=== PATIENT | female | born 1990 | race Caucasian/White ===

== ENCOUNTER 2018-10-03 10:39 | Inpatient (IN) | payer OTHER ==
[~2018-10-03] VITALS: Ht 154.9 cm; Wt 68.5 kg
[2018-10-03 10:46] VITALS: BP 118/69
--- NOTE | 2018-10-03 10:55 | NUR ---
PT W/C TO BED 11. SISTER AT BEDSIDE.
--- NOTE | 2018-10-03 11:09 | NUR ---
BIB SISTER C/O LEFT ARM,GRIS LOWER BACK& GRIS LEGS PAIN X TODAY.DENIES TRAUMA. MED HX: ANXIETY, DEPRESSION. PATIENT STATES PAIN OF 05/21 AT THIS TIME; PATIENT POSITIONED FOR COMFORT; HOB ELEVATED; BEDRAILS UP X1; BED DOWN. ER MD MADE AWARE OF PT STATUS.
[2018-10-03] MEDS ORDERED: NACL 0.9% 2,000 ML IV SCH (11:30)
[2018-10-03] MEDS ORDERED: KETOROLAC 30 MG/ML VIAL IVP ONE (11:30)
[2018-10-03] MEDS ORDERED: CLINDAMYCIN 900 MG in DEXTROSE 5% 100 ML IV ONE (11:30)
[2018-10-03] MEDS ORDERED: DEXAMETHASONE 10 MG/ML VIAL IVP ONE (11:30)
[2018-10-03] MEDS ORDERED: LEVOFLOXACIN 500 MG TAB PO ONE (11:30)
[2018-10-03] MEDS ORDERED: FAMOTIDINE 20 MG/2 ML VIAL IVP ONE (11:30)
[2018-10-03 11:38] LABS: BARBITURATE, URINE NEG. ng/ml (NEG <=200); BENZODIAZEPINE, URINE NEG. ng/mL (NEG <=200); CANNABINOID, URINE NEG. ng/mL (NEG <=50); COCAINE, URINE NEG. ng/mL (NEG <=300); OPIATE, URINE POS. ng/mL (NEG <=2000); PHENCYCLIDINE SCREEN,URINE NEG. ng/mL (NEG <=25)
--- NOTE | 2018-10-03 12:00 | NUR ---
PT WAS GIVEN TORADOL IVP, PT REPORTS IMMEDIATE ITCHINESS. NO RESP DISTRESS, HIVES, 98% ON RA. CELIO PASCUAL MADE AWARE. LOGGED IN PATIENT RECORD NEW ALLERGY TO TORADOL. DR. PERSON WILL SEE PATIENT. Addendum: 10/03/18 at 1234 by MEDDCV PT WAS GIVEN TORADOL IVP, PT REPORTS IMMEDIATE ITCHINESS. NO RESP DISTRESS OR HIVES, 98% ON RA. CELIO PASCUAL MADE AWARE. LOGGED IN PATIENT RECORD NEW ALLERGY TO TORADOL. DR. PERSON WILL SEE PATIENT.
[2018-10-03] MEDS ORDERED: CLINDAMYCIN 900 MG/6 ML VIAL IV ONE (12:02)
--- NOTE | 2018-10-03 12:15 | NUR ---
XRAY AT BEDSIDE.
--- NOTE | 2018-10-03 12:20 | NUR ---
FLU SWAB COLLECTED AND SENT TO LAB.
[2018-10-03 12:23] LABS: BASOPHILS % (AUTO) 0.2 % (0.0-2.0); EOSINOPHILS % (AUTO) 0.1 % (0.0-4.0); HEMATOCRIT 34.5 % (36-48); HEMOGLOBIN 11.4 g/dL (12.0-16.0); LYMPHOCYTES # (AUTO) 1.2 K/uL (2.5-16.5); LYMPHOCYTES % (AUTO) 11.9 % (20.5-51.1); MEAN CORPUSCULAR HEMOGLOBIN 26 pg (27-31); MEAN CORPUSCULAR HGB CONC 33 g/dL (33-37); MEAN CORPUSCULAR VOLUME 78.8 fL (80-94); MONOCYTES # (AUTO) 0.8 K/uL (0.8-1.0); MONOCYTES % (AUTO) 7.7 % (1.7-9.3); NEUTROPHILS # (AUTO) 8.2 K/uL (1.8-7.7); NEUTROPHILS % (AUTO) 80.1 % (42.2-75.2); PLATELET COUNT (AUTO) 202 K/uL (140-450); RED BLOOD CELL COUNT(AUTO) 4.38 MIL/uL (4.20-5.40); RED CELL DISTRIBUTION WIDTH 16.3 % (11.6-13.7); WHITE BLOOD COUNT (AUTO) 10.3 K/uL (4.8-10.8)
--- NOTE | 2018-10-03 12:25 | NUR ---
PATIENT TAKEN TO CT.
[2018-10-03] MEDS ORDERED: diphenhydrAMINE 50 MG/ML VIAL IVP ONE (12:30)
[2018-10-03 12:34] LABS: ANION GAP 10.4 (8-16); CARBON DIOXIDE 25.7 mmol/L (21-32); POTASSIUM 4.1 mmol/L (3.5-5.1)
--- NOTE | 2018-10-03 12:38 | NUR ---
RETURNED FROM RADIOLOGY VIA [facility]
[2018-10-03 12:40] LABS: MAGNESIUM 1.9 mg/dL (1.8-2.4); TOTAL BILIRUBIN 0.2 mg/dL (0.0-1.0)
--- NOTE | 2018-10-03 12:42 | NUR ---
AMBULATED TO RESTROOM WITH HELP FROM FAMILY- STEADY GUARDED GAIT CONTINUES TO C/O SADDLE AND LUE SORENESS PAIN
--- NOTE | 2018-10-03 13:30 | NUR ---
DR. PERSON SPEAKING WITH PATIENT, PT NOW STATES THAT SHE LEFT A TAMPON AND DID NOT REMOVE.
[2018-10-03 13:37] LABS: APPEARANCE,URINE CLEAR (CLEAR); BILIRUBIN,URINE NEGATIVE (NEGATIVE); BLOOD, URINE 1+ (NEGATIVE); COLOR,URINE YELLOW (YELLOW); LEUKOCYTE ESTERASE ,URINE NEGATIVE (NEGATIVE); NITRITE, URINE NEGATIVE (NEGATIVE); UGLUCOSE NEGATIVE (NEGATIVE)
--- NOTE | 2018-10-03 13:37 | NUR ---
Dr. Marshall at bedside for pelvic exam.
[2018-10-03] MEDS ORDERED: CLON0.5T1 PO (13:39)
[2018-10-03] MEDS ORDERED: TRAZ-343 PO (13:39)
[2018-10-03] MEDS ORDERED: GABA100C PO (13:39)
[2018-10-03] MEDS ORDERED: PAX20 PO (13:39)
[2018-10-03 13:48] LABS: AMYLASE 43 U/L (25-115); LIPASE 326 U/L (73-393)
--- NOTE | 2018-10-03 13:50 | NUR ---
US tech at bedside for exam.
[2018-10-03 13:51] LABS: WBC,URINE 0-5 /HPF (0-5)
[2018-10-03] MEDS ORDERED: MORPHINE SULFATE 4 MG/ML SYR IVP ONE (14:00)
[2018-10-03] MEDS ORDERED: ONDANSETRON 4 MG/2 ML VIAL IVP ONE (14:00)
--- NOTE | 2018-10-03 14:26 | NUR ---
RECEIVED HAND OFF REPORT FROM ER NURSE. PT IS AWAKE IN BED. PT APPEARS STABLE AND IN NO APPARENT DISTRESS. ALL SAFETY MEASURES ARE IN PLACE. WILL CONTINUE TO MONITOR.
--- NOTE | 2018-10-03 14:30 | NUR ---
PATIENT RESTING AT THIS TIME. NO SIGNS OF DISTRESS.
--- NOTE | 2018-10-03 15:15 | NUR ---
Patient will be admitted to care of DR. WILLSON. Admited to TELE. Will go to room 111B. Belongings list completed. Report to LIZETTE RIVERA.
[2018-10-03 16:16] VITALS: BP 107/69
--- NOTE | 2018-10-03 16:25 | NUR ---
FREQUENT ROUNDING ON PT PT IS ASLEEP IN BED. NOTABLE CHEST RISE AND FALL. PT APPEARS STABLE AND IN NO APPARENT DISTRESS. ALL SAFETY MEASURES ARE IN PLACE WILL CONTINUE TO MONITOR.
[2018-10-03] MEDS: NACL 0.9% 1,000 ML IV SCH (16:44)
[2018-10-03] MEDS ORDERED: HYDROcodone/APAP 5/325 MG 1 TAB TAB PO PRN (16:45)
[2018-10-03] MEDS ORDERED: ACETAMINOPHEN 325 MG TAB PO PRN (16:45)
[2018-10-03] MEDS ORDERED: clonazePAM 0.5 MG TAB PO PRN (16:45)
[2018-10-03] MEDS ORDERED: ALBUTEROL 0.083% 2.5 MG/3 ML NEBU INH PRN (16:45)
[2018-10-03] MEDS ORDERED: ONDANSETRON 4 MG/2 ML VIAL IVP PRN (16:45)
[2018-10-03] MEDS ORDERED: LEVOFLOXACIN 750 MG/D5W PREMIX 150 ML IV SCH (18:00)
[2018-10-03] MEDS ORDERED: CLINDAMYCIN 600 MG in DEXTROSE 5% 50 ML IV SCH (18:00)
--- NOTE | 2018-10-03 18:20 | NUR ---
CLINDAMYCIN NOT AVAILABLE THROUGH [facility] CHARGE NURSE LIZETTE CALLED [facility]UM[facility] [employer]ACKER. LUMBER RACKER WILL GET MEDICATION AND BRING TO UNIT.
[2018-10-03] MEDS ORDERED: CLINDAMYCIN 600 MG/4 ML VIAL ONE (18:50)
[2018-10-03] MEDS: CLINDAMYCIN PHOS 600MG/D5W PM 50 ML IV SCH ×2 (19:04→23:27)
--- NOTE | 2018-10-03 19:06 | NUR ---
NATURAL RESOURCES PROFESSOR BROUGHT MEDICATION AND [place] MEDICATION SPANISH INTERPRETER AT BEDSIDE PERFORMING ABDOMINAL ULTRASOUND
--- NOTE | 2018-10-03 19:25 | NUR ---
ENDORSED PT TO DIGITAL HARDWARE DESIGN ENGINEER RN. PT IS AWAKE IN BED PT IS STABLE AND APPEARS IN NO APPARENT DISTRESS. ALL SAFETY MEASURES ARE IN PLACE. IVF IS INFUSING IV SITE SHOWS NO SIGNS OF INFLAMMATION OR INFILTRATION. ULTRASOUND AT BEDSIDE.
--- NOTE | 2018-10-03 19:26 | NUR ---
REPORT RECEIVED FROM AM NURSE. PT AWAKE, ALERT AND ORIENTED X 4. MOTHER AT BEDSIDE. BREATHING EQUAL AND UNLABORED PT RT FOREARM 22G INTACT AND INFUSING WELL. SAFETY PRECAUTIONS IN PLACE. CALL LIGHT WITHIN REACH. WILL CONTINUE TO MONITOR.
[2018-10-03 20:00] VITALS: BP 126/80
[2018-10-03 20:01] VITALS: BP 126/80
[2018-10-03] MEDS: MORPHINE SULFATE 4 MG/ML SYR IVP PRN (20:12)
[2018-10-03] MEDS: GABAPENTIN 100 MG CAP PO SCH (20:54)
--- NOTE | 2018-10-03 22:05 | NUR ---
PT LAYING IN BED, EASILY AROUSABLE. NO VISIBLE SIGNS OF DISTRESS. SAFETY PRECAUTIONS IN PLACE. CALL LIGHT WITHIN REACH. WILL CONTINUE TO MONITOR.
[2018-10-03 23:57] VITALS: BP 115/68
[2018-10-04] MEDS: MORPHINE SULFATE 4 MG/ML SYR IVP PRN ×4 (00:01→12:06)
--- NOTE | 2018-10-04 00:01 | NUR ---
PT REPORTING 8/10 PAIN. PAIN MEDICATION GIVEN PER ORDERS. PT EDUCATED TO USE CALL LIGHT IF NEEDS TO GO TO THE BATHROOM. PT VERBALIZED UNDERSTANDING.
--- NOTE | 2018-10-04 01:00 | NUR ---
PT CALLED TO USE BATHROOM. PT PROVIDED WITH MENSTRUAL PADS AND CLEAN UNDERWEAR. PT ASSISTED BACK INTO BED. ALL NEEDS ATTENDED TO. WILL CONTINUE TO MONITOR.
[2018-10-04] MEDS: NACL 0.9% 1,000 ML IV SCH ×2 (02:44→06:22)
--- NOTE | 2018-10-04 03:00 | NUR ---
PT SLEEPING IN BED, NO VISIBLE SIGNS OF DISTRESS. BREATHING EQUAL AND UNLABORED. BED IN LOW POSITION, CALL LIGHT WITHIN REACH. WILL CONTINUE TO MONITOR.
[2018-10-04 04:08] VITALS: BP 117/70
--- NOTE | 2018-10-04 04:40 | NUR ---
PT RIGHT FOREARM IV INFILTRATED. NEW IV ACCESS OBTAINED ON RIGHT HAND 22G.
[2018-10-04] MEDS: CLINDAMYCIN PHOS 600MG/D5W PM 50 ML IV SCH ×2 (05:17→12:07)
--- NOTE | 2018-10-04 05:17 | NUR ---
CLINDAMYCIN HUNG. PT SITTING UP IN BED, AWAKE, ALERT AND ORIENTED. PT ASSISTED TO THE RESTROOM. PT ASSISTED BACK TO BED. BED IN LOW POSITION. CALL LIGHT WITHIN REACH. WILL ENDORSE TO AM NURSE FOR CONTINUITY OF CARE.
[2018-10-04 07:18] LABS: BASOPHILS % (AUTO) 0.1 % (0.0-2.0); HEMATOCRIT 31.8 % (36-48); HEMOGLOBIN 10.4 g/dL (12.0-16.0); LYMPHOCYTES # (AUTO) 1.3 K/uL (2.5-16.5); LYMPHOCYTES % (AUTO) 11.9 % (20.5-51.1); MEAN CORPUSCULAR HEMOGLOBIN 26 pg (27-31); MEAN CORPUSCULAR HGB CONC 33 g/dL (33-37); MEAN CORPUSCULAR VOLUME 79.1 fL (80-94); MONOCYTES # (AUTO) 0.8 K/uL (0.8-1.0); MONOCYTES % (AUTO) 7.3 % (1.7-9.3); NEUTROPHILS # (AUTO) 8.8 K/uL (1.8-7.7); NEUTROPHILS % (AUTO) 80.7 % (42.2-75.2); PLATELET COUNT (AUTO) 158 K/uL (140-450); RED BLOOD CELL COUNT(AUTO) 4.02 MIL/uL (4.20-5.40); RED CELL DISTRIBUTION WIDTH 16.4 % (11.6-13.7); WHITE BLOOD COUNT (AUTO) 10.9 K/uL (4.8-10.8)
--- NOTE | 2018-10-04 07:20 | NUR ---
RECEIVED BED SIDE REPORT FROM SAMPLE CARRIER RN. PT A/O X4, ON RA IN NO DISTRESS, ON TELE MONITOR, SKIN INTACT, L HAND 22G RUNNING NS 100CC/HR, LAST BM 10/03, PT IN STABLE CONDITION, CALL LIGHT WITHIN REACH, WILL CONTINUE TO MONITOR
[2018-10-04 07:38] LABS: PHOSPHORUS 2.8 mg/dL (2.5-4.9)
[2018-10-04 07:39] LABS: ANION GAP 12.6 (8-16); CARBON DIOXIDE 23.9 mmol/L (21-32); CREATININE 0.7 mg/dL (0.6-1.3); POTASSIUM 4.5 mmol/L (3.5-5.1)
[2018-10-04 08:00] VITALS: BP 124/85
[2018-10-04] MEDS: GABAPENTIN 100 MG CAP PO SCH (08:41)
--- NOTE | 2018-10-04 08:55 | NUR ---
PT STATED SHE WANTS TO GO OUTSIDE TO SMOKE. TOLD PT WE ARE A SMOKING FREE FACILITY AND WE CAN NOT LET HER GO OUTSIDE TO SMOKE DUE TO LIABILITY ISSUE. TOLD PT THAT WE WILL CALL DR TO GET ORDER FOR NICOTINE PATCH. PT AGREED.
[2018-10-04] MEDS ORDERED: PARoxetine 20 MG TAB PO SCH (09:00)
[2018-10-04] MEDS ORDERED: traZODone 50 MG TAB PO SCH ×2 (09:00→21:00)
[2018-10-04] MEDS ORDERED: ENOXAPARIN 40 MG/0.4 ML SYR SUBQ SCH (09:00)
--- NOTE | 2018-10-04 11:30 | NUR ---
PT COMPLAINED ABOUT HER SISTER GETTING A CALL FROM SOMEONE ABOUT PT'S HEART BEING IN WORSE CONDITION THAN ANTICIPATED. PT COMPLAINED ABOUT HER NOT BEING THE FIRST ONE TO KNOW ABOUT HER MEDICAL STATUS. MADE HER AWARE THAT NEITHER ME (GIOVANNI) OR ALONDRA CALLED HER SISTER. BARLEY STEEPER DIPAK WENT TO SPEAK WITH PATIENT AND MADE HER AWARE THAT NO ONE FROM THE HOSPITAL CALLED HER SISTER. PT IN DISTRESS AND SEEMS ANXIOUS. OFFERED HER AN ANXIETY PILL AND PT AGREED. WILL CONTINUE TO MONITOR
[2018-10-04 12:00] VITALS: BP 142/97
[2018-10-04] MEDS ORDERED: CYCLOBENZAPRINE 10 MG TAB PO PRN (12:20)
--- NOTE | 2018-10-04 12:35 | NUR ---
OFFERED PT NICOTINE PATCH, PT REFUSED. STILL WANTS TO GO OUTSIDE TO HAVE A COUPLE PUFFS. TOLD HER WE CAN'T DO THAT, BECAUSE SHE IS TELE MONITORING AND WE ALREADY ASKED THE CHARGE NURSE. PT WANTS TO TALK TO THE CHARGE NURSE. TOLD LIZETTE ABOUT PT'S REQUEST.
[2018-10-04] MEDS ORDERED: NICOTINE TRANSD SYS 14 MG/24 HR PATCH TD SCH (13:00)
--- NOTE | 2018-10-04 14:10 | NUR ---
CAME BY TO TALK TO OPT ABOUT PT'S REQUEST TO LEAVE AMA. TOLD PT WE ARE STILL WAITING FOR CARDIAC CONSULT AND ECHO AND ALSO THE INFECTIOUS CONTROL DOCTOR.
--- NOTE | 2018-10-04 14:15 | NUR ---
PT WHEELED TO L&D TO BE SEEN BY OBGYN TO SEE IF THERE IS STILL A RETAINED TAMPON. ASSESSED HER, I STOOD A WITNESS. STATED NO RETAINED TAMPON. PT WHEELED BACK TO UNIT IN STABLE CONDITION
--- NOTE | 2018-10-04 15:30 | NUR ---
REMOVED IV CATH ON THE RIGHT HAND, TIP INTACT, PRESSURE APPLIED. REMOVED TELE MONITOR AND WRIST BANDS. Addendum: 10/04/18 at 1811 by Kiet Becerra RN ALSO, ASKED PT IF SHE WANTS TO STAY AND WAIT FOR THE HAMMER SMITH AND INFECTION DOCTOR. PT REFUSED. PT SAID SHE WILL FOLLOW UP OUTPT. PT ASKED IF HER PRIMARY MD CAN CALL FOR THE PENDING LAB TEST RESULTS, TOLD HER YES AND RECOMMEND HER TO FOLLOW UP WITH PCP WITHIN 1 WK, IF SYMPTOMS LIKE FEVER OR LOW BP GETS WORSE, SHE CAN COMES BACK TO ED. PT VERBALIZED UNDERSTANDING.
--- NOTE | 2018-10-04 15:42 | NUR ---
PT LEFT AND SIGNED AMA. EDUCATED PT ON THE RISKS AND CONSEQUENCES OF LEAVING AMA. PT AND FAMILY STILL REFUSED TO STAY. ASKED FOR PT'S LABS AND IMAGING REPORTS. PRINTED THEM OUT AND HANDED OUT A COPY TO PT. ALSO GAVE PT PRESCRIPTION AND DUONEB SHOT ON RIGHT DELTOID.
--- NOTE | 2018-10-04 18:58 | NUR ---
RIR FILED. Unique Id: [id number]
[2018-10-07 18:33] LABS: HEPATITIS A ANTIBODY IGM NEGATIVE (NEGATIVE); HEPATITIS B CORE AB TOTAL NEGATIVE (NEGATIVE); HEPATITIS B SURFACE ANTIBODY REACTIVE (NONREACTIVE); HEPATITIS B SURFACE ANTIGEN NEGATIVE (NEGATIVE)
[2018-10-09 23:33] LABS: MYOGLOBIN, SERUM 820 ng/mL (28 - 72)
== END 2018-10-04 15:42 | disposition left against medical advice (07) | DRG 720 ==
LOC: MED 10:39 → MTU 14:43
PROVIDERS: ADMIT Internal Medicine Pulmonary Disease; ATTEND Internal Medicine Pulmonary Disease
DX: A41.9 Sepsis, unspecified organism (principal); I21.A1 Myocardial infarction type 2; M62.82 Rhabdomyolysis; E86.9 Volume depletion, unspecified; F32.9 Major depressive disorder, single episode, unspecified; F41.9 Anxiety disorder, unspecified; M25.50 Pain in unspecified joint; R74.0 Nonspecific elevation of levels of transaminase and lactic acid dehydrogenase [LDH]; N92.0 Excessive and frequent menstruation with regular cycle; F17.210 Nicotine dependence, cigarettes, uncomplicated; M60.9 Myositis, unspecified; Z53.21 Procedure and treatment not carried out due to patient leaving prior to being seen by health care provider; Z88.1 Allergy status to other antibiotic agents; Z88.8 Allergy status to other drugs, medicaments and biological substances; Z88.0 Allergy status to penicillin
CPT/HCPCS: 36415; 71045; 72192; 76705; 76856; 80048; 80053; 80305; 81001; 82150; 82550; 82553; 82977; 83605; 83690; 83735; 83874; 84100; 84484; 85025; 85651; 86140; 86704; 86706; 86708; 86709; 86803; 87040; 87081; 87086; 87340; 87804; 96365; 96375; 99285; J1050; J1100; J1200; J1650; J1885; J1956; J2270; J2405; J3490; J7030; J7060; Q0092